=== PATIENT | female | born 1965 | race Caucasian/White ===

== ENCOUNTER 2020-04-02 11:01 | Outpatient (CLI) | payer BC, SELFPAY ==
--- NOTE | ~2020-04-02 | US_ITS ---
EXAMINATION: US soft tissue LE RT DATE: 04/02/2020 11:30 INDICATION: Lump at the lateral right midfoot TECHNIQUE: Multiple grayscale and Doppler ultrasound images of the region of concern at the lateral r ight midfoot were obtained. COMPARISON: None FINDINGS: Palpable abnormality corresponds to a 14 x 9 x 6 mm multilobulated cystic lesion which appears to rupinder se dorsally from the junction of the fourth and fifth tarsal metatarsal joints most consistent with a ganglion cyst. The lesion demonstrates no associated solid soft tissue component or vascular flow on color Doppler. IMPRESSION: 1. 14 x 9 x 6 mm multilobulated ganglion cyst arising between the fourth and fifth tarsal metatarsal joints. Reviewed, dictated and finalized at location A. IMPRESSION: 1. 14 x 9 x 6 mm multilobulated ganglion cyst arising between the fourth and fi fth tarsal metatarsal joints.
== END 2020-04-02 11:02 | disposition home or self-care (01) ==
PROVIDERS: PCP Internal Medicine; Visit Provider Nurse Practitioner
DX: R22.41 Localized swelling, mass and lump, right lower limb (principal); M67.471 Ganglion, right ankle and foot
CPT/HCPCS: 76882

== ENCOUNTER 2020-07-23 08:57 | Outpatient (CLI) | payer BC, SELFPAY ==
--- NOTE | ~2020-07-23 | MMUS_ITS ---
EXAMINATION: MM diagnostic chikis BI w halle, US breast RT limited HISTORY: Palpable breast abnormality. TECHNIQUE: Additional 3-D tomosynthesis images of the breasts were performed and synthetic 2-D images were generated. CAD analysis was submitted and interpreted. High resolution right breast ultrasound was performed. COMPARISON: 01/10/2019 BREAST PARENCHYMAL COMPOSITION: The breasts are heterogenously dense, which may obscure small masses. FINDINGS: MAMMOGRAPHIC FINDINGS: There is no mammographic evidence for malignancy in the right breast. There are clustered calcificati ons in the upper outer quadrant of the left breast, anterior depth. There are additional scattered cl ustered calcifications of the left breast, likely benign. ULTRASOUND: Limited right breast ultrasound: At 4:00, 5 cm nipple, there is an oval hypoechoic mass with heterogeneous internal echotexture, mixed posterior attenuation and no internal vascularity measuring 4 x 4 x 2 mm. IMPRESSION: 1. Clustered nonspecific calcifications, upper outer quadrant of the left breast, anterior depth. Ramon reotactic biopsy recommended. BI-RADS Category 4. 2. Probable benign 4 mm right breast mass at 4:00, 5 cm from. Six-month follow-up right breast ultras ound recommended. BI-RADS Category 3. Reviewed, dictated and finalized at location A. IMPRESSION: 1. Clustered nonspecific calcifications, upper outer quadrant of the left breas t, anterior depth. Stereotactic biopsy recommended. BI-RADS Category 4. 2. Probable benign 4 mm right breast mass at 4:00, 5 cm from. Six-month follow- up right breast ultrasound recommended. BI-RADS Category 3.
== END 2020-07-23 08:58 | disposition home or self-care (01) ==
LOC: ANHIMG 08:58
PROVIDERS: PCP Internal Medicine; Visit Provider Clinical Nurse Specialist
DX: N63.10 Unspecified lump in the right breast, unspecified quadrant (principal); R92.8 Other abnormal and inconclusive findings on diagnostic imaging of breast
CPT/HCPCS: 76642; 77062; 77066; G0279

== ENCOUNTER 2020-07-31 12:33 | Outpatient (CLI) | payer BC, SELFPAY ==
--- NOTE | ~2020-07-31 | MM_ITS ---
EXAMINATION: MM stereotactic bx LT, MM post biopsy diagnostic LT, MM stereotactic specimen LT, Specim en Radiograph, Tissue Marker Clip Placement, Unilateral Mammogram DATE: 07/31/2020 14:41 (accession [id number]), 07/31/2020 15:38 (accession [id number]), 07/31 15:37 (accession [id number]) INDICATION: Abnormal mammogram: Microcalcifications, anterior left breast, upper outer quadrant. TECHNIQUE AND FINDINGS: The risks and potential benefits of the procedure were discussed with the patient and written informe d consent was obtained. Timeout procedure was performed. The patient was placed in the prone position on the dedicated stereotactic table with the left breast in lateral medial compression, and the area of interest was localized and targeted utilizing digital imaging with stereotaxis. After sterile preparation of the skin, 1% lidocaine was utilized for local anesthesia at the skin pun cture site and 1% lidocaine with epinephrine was utilized for deeper local anesthesia/is about the bi opsy site. A 9G [employer] vacuum assisted biopsy needle was advanced to the level of the calcification o f interest from a lateral approach utilizing stereotactic guidance and a total of 28 tissue core biop sies were obtained. A specimen radiograph demonstrates that multiple calcifications of interest are included within the t issue cores. A tissue marker clip was then placed at the biopsy site. A digital mammographic exposu re confirmed the successful deployment of the biopsy marker. The needle was removed and hemostasis w as achieved. A sterile bandage was applied. The patient tolerated the procedure well and there is n o evidence of significant immediate complication. The patient was given verbal as well as written po stprocedural instructions prior to discharge from the department. Tissue cores were submitted to [facility] pathology for histologic analysis. A 2-view left unilateral digital mammogram was obtained post procedure, demonstrating the tissue blanka er clip in expected position. IMPRESSION: 1. Successful stereotactic biopsy of anterior upper outer left breast microcalcifications, followed by tissue marker clip placement. Please refer to pathology report for histologic analysis. Reviewed, dictated and finalized at Location A. Reviewed, dictated and finalized at location A. IMPRESSION: 1. Successful stereotactic biopsy of anterior upper outer left breast microca lcifications, followed by tissue marker clip placement. Please refer to pathol ogy report for histologic analysis. IMPRESSION: 1. Successful stereotactic biopsy of anterior upper outer left breast microca lcifications, followed by tissue marker clip placement. Please refer to pathol ogy report for histologic analysis.
== END 2020-07-31 12:34 | disposition home or self-care (01) ==
PROVIDERS: PCP Internal Medicine; Visit Provider Clinical Nurse Specialist
DX: N63.20 Unspecified lump in the left breast, unspecified quadrant (principal)
CPT/HCPCS: 19081; 77065; 88305

== ENCOUNTER → 2021-08-24 12:53 | Outpatient (CLI) | payer BC, SELFPAY ==
--- NOTE | ~2021-08-24 | XR_ITS ---
XR chest 2V DATE: 08/24/2021 13:24 INDICATION: Long-term medication use for rheumatoid arthritis TECHNIQUE: 2 views COMPARISON: 10/10/2019 2 view chest FINDINGS: Normal heart size. No hilar or mediastinal enlargement. No pleural effusion or pulmonary va scular congestion. No pneumothorax. No pulmonary infiltrate or consolidation. Diffuse osteopenia. Mild dextro scoliosis of thoracic spine. Degenerative spurring of the thoracic sp ine. IMPRESSION: No active cardiopulmonary disease or significant change since 10/10/2019 Reviewed, dictated and finalized at location B.
== END ==
PROVIDERS: PCP Internal Medicine; Visit Provider Internal Medicine Rheumatology
DX: M05.79 Rheumatoid arthritis with rheumatoid factor of multiple sites without organ or systems involvement (principal); Z79.899 Other long term (current) drug therapy; Z51.81 Encounter for therapeutic drug level monitoring
CPT/HCPCS: 71046

== ENCOUNTER 2022-01-18 07:29 | Outpatient (CLI) | payer BC, SELFPAY ==
--- NOTE | ~2022-01-18 | MM_ITS ---
EXAMINATION: MM screening chikis BI w halle HISTORY: Screening TECHNIQUE: Craniocaudal and mediolateral oblique 3-D tomosynthesis images were obtained and synthetic 2-D images were generated. CAD analysis was submitted and interpreted. COMPARISON: Comparison to multiple prior studies sequentially, with oldest reviewed study dated 01/10. BREAST PARENCHYMAL COMPOSITION: The breasts are heterogeneously dense, which may obscure small masses . FINDINGS: There is a developing focal asymmetry in the upper outer quadrant of the right breast. The left breast is stable without evidence for malignancy. IMPRESSION: 1. Developing right breast asymmetry. 2. Additional spot compression and mediolateral views with possible follow-up breast ultrasound recom mended. BI-RADS Category 0: Incomplete: Needs additional imaging evaluation. Reviewed, dictated and finalized at location A. PHONE STATION INSTALLER IMPRESSION: 1. Developing right breast asymmetry. 2. Additional spot compression and mediolateral views with possible follow-up b reast ultrasound recommended. BI-RADS Category 0: Incomplete: Needs additional imaging evaluation.
== END 2022-01-18 07:30 | disposition home or self-care (01) ==
LOC: ANHIMG 07:34
PROVIDERS: PCP Internal Medicine; Visit Provider Obstetrics & Gynecology
DX: Z12.31 Encounter for screening mammogram for malignant neoplasm of breast (principal); R92.8 Other abnormal and inconclusive findings on diagnostic imaging of breast
CPT/HCPCS: 77063; 77067

== ENCOUNTER 2022-02-03 12:55 | Outpatient (CLI) | payer BC, SELFPAY ==
--- NOTE | ~2022-02-03 | MMUS_ITS ---
EXAMINATION: MM diagnostic chikis RT w halle, US breast RT limited HISTORY: TECHNIQUE: Additional 3-D tomosynthesis images of were performed and synthetic 2-D images were genera mckinley. CAD analysis was submitted and interpreted. High resolution breast ultrasound was performed. COMPARISON: 01/18/2022 bilateral screening mammogram 07/23/2020 bilateral diagnostic mammogram and limited right breast ultrasound FINDINGS: MAMMOGRAPHIC FINDINGS: No suspicious mass or architectural distortion is detected. There are scattered benign calcification s. ULTRASOUND: An approximately 2 x 3.3 mm irregular hypoechoic area with posterior shadowing is noted at 12:00 2 cm from nipple. Ultrasound guided biopsy is recommended. IMPRESSION: 1. Irregular hypoechoic mass with posterior shadowing at 12:00 2 cm from nipple 2. Ultrasound guided biopsy of 12:00 lesion is recommended. BIRADS Category 4: Suspicious abnormality; biopsy should be considered. Telephoned the report and ultrasound-guided biopsy recommendation for the right breast 12:00 lesi on on 02/04/[address] Cavazos's medical records receptionist. Thalia Reviewed, dictated and finalized at location A. IMPRESSION: 1. Irregular hypoechoic mass with posterior shadowing at 12:00 2 cm from nipple 2. Ultrasound guided biopsy of 12:00 lesion is recommended. BIRADS Category 4: Suspicious abnormality; biopsy should be considered. Telephoned the report and ultrasound-guided biopsy recommendation for the r ight breast 12:00 lesion on 02/04/[address] Cavazos's medical Ass t. Thalia IMPRESSION: 1. Irregular hypoechoic mass with posterior shadowing at 12:00 2 cm from nipple 2. Ultrasound guided biopsy of 12:00 lesion is recommended. BIRADS Category 4: Suspicious abnormality; biopsy should be considered. Telephoned the report and ultrasound-guided biopsy recommendation for the r ight breast 12:00 lesion on 02/04/[address] Cavazos's medical Ass tNakia Vásquez
== END 2022-02-03 12:56 | disposition home or self-care (01) ==
PROVIDERS: PCP Internal Medicine; Visit Provider Obstetrics & Gynecology
DX: R92.8 Other abnormal and inconclusive findings on diagnostic imaging of breast (principal); N63.14 Unspecified lump in the right breast, lower inner quadrant
CPT/HCPCS: 76642; 77061; 77065; G0279

== ENCOUNTER 2022-08-11 07:55 | Outpatient (CLI) | payer BC, SELFPAY ==
--- NOTE | 2022-09-06 21:24 | WPDSLEEPSTUD ---
Sleep Study Date of Study: 08/11/22 Ordering Provider: Thuy Heath NP Interpreting Physician: Sandra Hernadez DO Sleep Study Type: Polysomnogram Height: 1.6 m Weight: 55.338 kg Body Mass Index: 21.6 Neck Circumference (inches): 12.5 [place]: 8 Reason for Sleep Study Previously diagnosed VELIA on CPAP. Lost 130 pounds. Sleep History The patient is a 57-year-old female with anxiety, depression, hyperlipidemia, rheumatoid arthritis, type 2 diabetes and previously diagnosed sleep apnea on CPAP that had a sleep study ordered by her primary care for evaluation of sleep apnea after significant weight loss. The patient denies awakening from sleep short of breath. She denies awakening at night with heartburn, belching or cough. She denies snoring loud enough that others complain. She frequently has trouble sleeping when she has a cold. She denies waking up gasping for air throughout the night. She denies sweating excessively at night. She denies having heart palpitations or irregular heartbeats during the night. She occasionally falls asleep during the day but never while driving. She denies sleep paralysis, cataplexy and hypnagogic / hypnopompic hallucinations. She denies having trouble at school or work due to sleepiness. She denies feeling afraid of going to sleep. She denies having nightmares. She rarely remembers her dreams. She rarely has thoughts racing through her. She occasionally feels sad, depressed and anxious. She denies having muscular tension. She denies noticing parts of her body jerk. She denies kicking during the night. She denies having crawling and aching feelings in her legs as well as leg pain during the night. She denies grinding her teeth during sleep awakening with morning jaw pain. She denies being bothered by pain during the day and denies being awakened by pain during the night. She rarely wakes up feeling stiff morning. She denies waking up with sore or achy muscles. She denies waking up with pain in the neck, spine and other joints. She goes to bed at 8:00 p.m. on both weekdays and weekends. It takes her 30 minutes to fall asleep. She wakes up once at most throughout the night to urinate. She is able fall back asleep immediately. She wakes up at 4:00 a.m. on weekdays and between 4-5 a.m. on the weekends. She typically gets 8 hours of sleep per night. She does not stay in bed after waking up in the morning. She currently lives with her and children. She does not consume any caffeinated beverages within 2 hours of bedtime. She does not engage in physical exercise before bedtime. She will watch television and occasionally read before falling asleep. She will occasionally take naps in the afternoon or the evening. He drinks 3 cups of coffee per day. She denies tobacco, alcohol and recreational drug use. [facility] Past Medical History Medical History Anxiety and depression H/O one miscarriage Mixed hyperlipidemia Non-healing wound Rheumatoid arthritis Type 2 diabetes mellitus without complication, with long-term current use of insulin Surgical History Surgical History Delivery by section H/O dilation and curettage H/O gastric bypass H/O: hysterectomy History of bariatric surgery Family History Family History Mother Diabetes mellitus Grandparent Diabetes mellitus Colon cancer Leukemia Social History Social History Smoking status: Never smoker Alcohol intake: never Medications Home Medications Medication Instructions Recorded Confirmed Type bimatoprost 0.01 % eye drops 1 drop ophthalmic (eye) QPM 10/10/19 12/19/21 History ([place]) cyclosporine 0.05 % eye drops in a 1 drop ophthalmic (eye) Q12H 10/10/19 12/19/21 H
[2022-09-06 21:31] VITALS: BMI 21.6
== END 2022-08-12 06:48 | disposition home or self-care (01) ==
LOC: ANHCSM 07:56
PROVIDERS: PCP Internal Medicine; Visit Provider Nurse Practitioner
DX: G47.33 Obstructive sleep apnea (adult) (pediatric) (principal); R06.83 Snoring
CPT/HCPCS: 95810

== ENCOUNTER 2022-09-08 10:31 | Outpatient (CLI) | payer OTHER, SELFPAY ==
[2022-09-08 19:39] LABS: Alanine Aminotransferase 39 U/L (6-35); Albumin Level 4.7 g/dL (3.5-5.1); Alkaline Phosphatase 74 U/L (38-126); Anion Gap 14 mmol/L (8-16); Aspartate Amino Transferase 41 U/L (14-36); Bilirubin,Total 0.5 mg/dL (0.2-1.3); Blood Urea Nitrogen 8 mg/dL (7-17); Calcium 9.5 mg/dL (8.4-10.2); Carbon Dioxide 27 mmol/L (22-30); Chloride 100 mmol/L (98-107); Cholesterol 142 mg/dL (0-200); Estimated Glomerular Filt Rate > 60; Glucose 126 mg/dL (65-110); HDL Direct 89 mg/dL; Potassium 3.9 mmol/L (3.4-5.0); Sodium 141 mmol/L (137-145); Triglycerides 57 mg/dL (<150)
[2022-09-08 19:50] LABS: LDL Cholesterol Direct 34 mg/dL; Vitamin D 25 Hydroxy 63.6 ng/mL
[2022-09-08 19:55] LABS: Basophils Absolute Auto 0.1 K/mm3 (0.0-0.1); Eosinophils Percent Auto 0.3 % (0-4.4); Hematocrit 35.3 % (37.0-47.0); Hemoglobin 11.4 g/dL (12.0-15.0); Hemoglobin A1C 7.3 % (<5.7); Immature Granulocyte Absolute 0.01 K/mm3 (0.00-0.031); Immature Granulocyte Percent A 0.2 % (0-0.5); Lymphocytes Absolute Auto 2.24 K/mm3 (0.9-3.2); Lymphocytes Percent Auto 37.3 % (18.3-44.2); Mean Corpuscular HGB Conc 32.3 g/dl (32-36); Mean Corpuscular Hemoglobin 29.1 pg (26-34); Mean Corpuscular Volume 90.1 fl (80-100); Monocytes Absolute Auto 0.5 K/mm3 (0.1-0.6); Monocytes Percent Auto 8.3 % (2.6-8.5); Neutrophils Absolute Auto 3.2 K/mm3 (1.3-6.7); Neutrophils Percent Auto 52.9 % (45.5-73.1); Platelet Count Result 242 k/mm3 (150-375); Red Blood Count 3.92 M/mm3 (4.2-5.4); Red Cell Distribution Width 13.2 % (11.5-14.5)
== END 2022-09-08 10:32 | disposition home or self-care (01) ==
LOC: ANHGOSHLAB 10:33
PROVIDERS: PCP Internal Medicine; Visit Provider Nurse Practitioner
DX: E11.9 Type 2 diabetes mellitus without complications (principal); E55.9 Vitamin D deficiency, unspecified; Z13.220 Encounter for screening for lipoid disorders; Z13.29 Encounter for screening for other suspected endocrine disorder; Z79.4 Long term (current) use of insulin; D64.9 Anemia, unspecified
CPT/HCPCS: 36415; 80053; 80061; 82306; 82728; 83036; 85025

== ENCOUNTER 2023-03-01 08:08 | Outpatient (CLI) | payer OTHER, SELFPAY ==
--- NOTE | ~2023-03-01 | MM_ITS ---
EXAMINATION: MM screening [facility] BI w halle HISTORY: Screening mammogram TECHNIQUE: Craniocaudal and mediolateral oblique 3-D tomosynthesis images were obtained and synthetic 2-D images were generated. CAD analysis was submitted and interpreted. COMPARISON: 02/03/2022, 01/18/2022, 07/23/2020, 01/10/2019 BREAST PARENCHYMAL COMPOSITION: The breasts are heterogeneously dense, which may obscure small masses . FINDINGS: No suspicious mass, calcification, or architectural distortion are identified in either farhat ast to suggest malignancy. There has been no suspicious interval change. IMPRESSION: 1. No mammographic evidence of malignancy. 2. Recommend routine screening mammography in one year. BI-RADS Category 1: Negative Reviewed, dictated and finalized at location A.
== END 2023-03-01 08:09 | disposition home or self-care (01) ==
PROVIDERS: PCP Internal Medicine; Visit Provider Obstetrics & Gynecology
DX: Z12.31 Encounter for screening mammogram for malignant neoplasm of breast (principal)
CPT/HCPCS: 77063; 77067

== ENCOUNTER 2023-03-17 08:00 | Outpatient (NON) | payer OTHER, SELFPAY | END 2023-03-17 08:01 | disposition home or self-care (01) | LOC: ANHLAB 03-18 15:10 | PROVIDERS: PCP Internal Medicine; Visit Provider Nurse Practitioner | DX: R22.9 Localized swelling, mass and lump, unspecified (principal) | CPT/HCPCS: 88304 ==

== ENCOUNTER 2023-03-22 11:45 | Outpatient (NON) | payer OTHER, SELFPAY | END 2023-03-22 11:46 | disposition home or self-care (01) | LOC: ANHLAB 03-23 11:47 | PROVIDERS: PCP Internal Medicine; Visit Provider Nurse Practitioner | DX: L02.212 Cutaneous abscess of back [any part, except buttock and flank] (principal) | CPT/HCPCS: 87070; 87075; 87147; 87181; 87186; 87205 ==

== ENCOUNTER 2024-01-18 13:11 | Outpatient (CLI) | payer OTHER, SELFPAY ==
--- NOTE | ~2024-01-18 | US_ITS ---
EXAMINATION: US thyroid DATE: 01/18/2024 13:39 INDICATION: Left thyroid mass on exam. TECHNIQUE: Multiple ultrasound images of the thyroid were obtained. COMPARISON: None. FINDINGS: The right thyroid lobe measures 3.8 x 1.4 x 1.6 cm. The left thyroid lobe measures 3.6 x 1.6 x 1.3 c m. The thyroid demonstrates heterogeneous hypoechogenicity. Vascularity is increased. In the right t hyroid lobe, there is a 4 mm nodule. In the right thyroid lobe, there is an 8 mm solid, isoechoic, wi zully than tall nodule with ill-defined margin without echogenic foci (TI-RADS TR4). IMPRESSION: 1. Heterogeneous, hypervascular thyroid, consistent with chronic lymphocytic (Bhavna) thyroiditis. 2. Small thyroid nodules, likely not clinically significant. No follow-up is needed. Reviewed, dictated and finalized at location E. SECONDARY PROFESSIONAL IMPRESSION: 1. Heterogeneous, hypervascular thyroid, consistent with chronic lymphocytic (H ashimoto) thyroiditis. 2. Small thyroid nodules, likely not clinically significant. No follow-up is ne eded.
== END 2024-01-18 13:12 ==
LOC: MICIMG 13:12
PROVIDERS: PCP Otolaryngology; Visit Provider Otolaryngology
DX: E07.89 Other specified disorders of thyroid (principal); E04.2 Nontoxic multinodular goiter
CPT/HCPCS: 76536

== ENCOUNTER 2024-08-02 07:53 | Outpatient (CLI) | payer OTHER, SELFPAY ==
--- NOTE | ~2024-08-02 | MM_ITS ---
EXAMINATION: MM screening chikis BI w halle HISTORY: Screening mammogram TECHNIQUE: Craniocaudal and mediolateral oblique 3-D tomosynthesis images were obtained and synthetic 2-D images were generated. CAD analysis was submitted and interpreted. COMPARISON: 03/01/2023, 02/03/2022, 01/18/2022, 07/23/2020 BREAST PARENCHYMAL COMPOSITION:Dense: The breasts are extremely dense, which lowers the sensitivity o f mammography. FINDINGS: No suspicious mass, calcification, or architectural distortion are identified in either farhat ast to suggest malignancy. There has been no suspicious interval change. IMPRESSION: No mammographic evidence of malignancy. Recommend routine screening mammography in one year. BI-RADS Category 1: Negative Reviewed, dictated and finalized at location .
--- NOTE | ~2024-08-02 | DEXA_ITS ---
Bone Density Report Name: RASHID ROLDAN Age: 59 Sex: Female Ethnicity: White Date of : 1965 Indication: postmenopausal; screening for osteoporosis; height loss; hysterectomy; rheumatoid arthritis; secondary osteoporosis; Referring Provider: JULY JOYNER Study: Bone densitometry was performed. Exam Date: August 02, 2024 Accession number: [id number] Bone Density: Region BMD T-score Z-score Classification AP Spine(L1-L4) 0.803 -2.2 -0.8 Osteopenia Femoral Neck (Left) 0.629 -2.0 -0.7 Osteopenia Total Hip (Left) 0.722 -1.8 -0.9 Osteopenia Femoral Neck (Right) 0.515 -3.0 -1.7 Osteoporosis Total Hip (Right) 0.629 -2.6 -1.6 Osteoporosis Total Hip Mean 0.676 -2.2 -1.3 Osteopenia World Health Organization criteria for BMD impression classify patients as: Normal (T-score at or above -1.0), Osteopenia (T-score between -1.0 and -2.5), or Osteoporosis (T-score at or below -2.5). 10-year Fracture Risk: FRAX not reported because: Some T-score for Spine Total or Hip Total or Femoral Neck at or below -2.5 Clinical Information Provided by Patient: Has rheumatoid arthritis Has secondary osteoporosis Has used the following medications: Vitamin D, Calcium Has the following medical conditions: Hysterectomy Patient maximum height was 64 Menopause Age: 43 No regular weight bearing exercise Drinks caffeinated beverages Onset of menses at age 11 Number of children 2 Impression: The patient has osteoporosis, based on the Right Femoral Neck T-score. Discussion: INCREASED RISK OF FRACTURE. BONE DENSITY IS UNDESIRABLY LOW AT ONE OR MORE SKELETAL SITES, CONSISTENT WITH POSTMENOPAUSAL OSTEOPOROSIS. This patient's lowest T-score meets the World Health Organization's (WHO) criteria for osteoporosis at one or more sites (T-score -2.5 or below). In untreated patients, the risk of osteoporotic fracture increases approximately two-fold for each 1.0 SD decrease in T-score. Low bone density is not the only risk factor for fracture; also consider factors such as patient's age, frailty or poor health, risk of falling, risk of injury, previous osteoporotic fracture, family history of osteoporosis, cigarette smoking, low body weight, etc. Not everyone with low bone mineral density has osteoporosis; osteomalacia and other metabolic bone disorders should also be considered. Patients who have osteoporosis should be evaluated for specific diseases and conditions (secondary causes) that may cause or contribute to bone loss. The [place] [employer] Clinical Endocrinologists (AACE) and National Osteoporosis Foundation (NOF) recommend pharmacologic intervention for all postmenopausal women whose T-score is in this range. The patient should follow a healthful lifestyle (good nutrition with adequate calcium and vitamin D, and mariluz
== END 2024-08-02 07:54 | disposition home or self-care (01) ==
LOC: ANHIMG 07:55
PROVIDERS: PCP Internal Medicine; Visit Provider Obstetrics & Gynecology
DX: Z12.31 Encounter for screening mammogram for malignant neoplasm of breast (principal); M85.89 Other specified disorders of bone density and structure, multiple sites; M81.0 Age-related osteoporosis without current pathological fracture; Z78.9 Other specified health status
CPT/HCPCS: 77063; 77067; 77080

== ENCOUNTER 2024-09-19 14:28 | Outpatient (CLI) | payer OTHER, SELFPAY ==
--- NOTE | ~2024-09-19 | XR_ITS ---
XR_[id number] 09/19/2024 14:42 Indication: Rheumatoid arthritis. Knee pain. Procedure: 2 views left knee Comparison: No prior studies for comparison. Findings: Mild tricompartment osteoarthritis of the left knee. No fracture, subluxation or dislocatio n. No significant joint effusion. No foreign bodies. No erosive changes. Impression: 1: Mild osteoarthritis of the left knee. Reviewed, dictated and finalized at location B. ING MILL OPERATOR Impression: 1: Mild osteoarthritis of the left knee.
--- NOTE | ~2024-09-19 | XR_ITS ---
[id number] 09/19/2024 14:42 Indication: Knee pain Procedure: 2 views right knee Comparison: No prior studies for comparison. Findings: Moderate osteoarthritis of the right knee. No fracture, subluxation or dislocation. No join t effusion. Impression: 1: Moderate tricompartment osteoarthritis. Reviewed, dictated and finalized at location B. NICAL INSPECTOR Impression: 1: Moderate tricompartment osteoarthritis.
== END 2024-09-19 14:29 | disposition home or self-care (01) ==
LOC: GOSHIMG 14:29
PROVIDERS: PCP Internal Medicine; Visit Provider Nurse Practitioner
DX: M17.0 Bilateral primary osteoarthritis of knee (principal)
CPT/HCPCS: 73560

== ENCOUNTER 2024-12-19 14:49 | Outpatient (CLI) | payer OTHER, SELFPAY ==
--- NOTE | ~2024-12-19 | XR_ITS ---
Left Knee Technique: AP and lateral views were obtained. Clinical History: Abnormal x-ray Findings: No fracture or dislocation is seen. There is mild tricompartmental degenerative spurring. S mall joint effusion is seen. Impression: Mild tricompartmental degenerative joint disease. Small joint effusion. Reviewed, dictated and finalized at location . [employer] Impression: Mild tricompartmental degenerative joint disease. Small joint effusion.
--- NOTE | ~2024-12-19 | XR_ITS ---
HISTORY: Abnormal xray of knee COMPARISON: 09/19/2024 TECHNIQUE: 2 views of the right knee were performed FINDINGS: No acute or subacute fracture, erosion, lytic or sclerotic lesion. Significant medial and lateral tibiofemoral joint space narrowing, with sclerosis. Osteophyte formation is also noted within the proximal tibia along the medial surface. Small suprapatellar joint effusion is identified. The infrapatellar joint space is clear. Ossification of the insertion of the quadriceps tendon is suspected, although visualization is limite d secondary to positioning. IMPRESSION: Progression of degenerative disease, without acute fracture. Reviewed, dictated and finalized at location A. [employer]PORATE STRATEGY
== END 2024-12-19 14:50 | disposition home or self-care (01) ==
LOC: MICIMG 14:51
PROVIDERS: PCP Internal Medicine; Visit Provider Nurse Practitioner Family
DX: M17.0 Bilateral primary osteoarthritis of knee (principal); R93.6 Abnormal findings on diagnostic imaging of limbs
CPT/HCPCS: 73560

== ENCOUNTER 2025-09-19 09:27 | Outpatient (CLI) | payer OTHER, SELFPAY ==
--- NOTE | ~2025-09-19 | CT_ITS ---
EXAM: CT abdomen without contrast INDICATION: Disorder of adrenal gland COMPARISONS: None. PROCEDURE: Multiplanar images without the use of IV contrast. Dose reduction technique(s) used. FINDINGS: Lower chest: Lung bases are clear. Body wall: There is a small, mostly soft tissue density structure in the anterior abdominal wall abutting the right side of the umbilicus. It contains some fat density. It is uncertain if this represents a thin injection site, a tiny hernia (there is artifact in the region on the sagittal images, so this cannot be stated with certainty), or be related to an infection in the umbilicus. ABDOMEN: Postoperative changes about the GE junction. Liver: Normal size and homogeneous parenchyma. Gallbladder: No calcified gallstones. No bile duct dilatation. Spleen: Normal. Adrenals: Normal. Pancreas: No mass or adjacent stranding. Normal caliber duct. Kidneys: No hydronephrosis. There are small cysts and a small nonobstructive stone in the left kidney. Aorta: Normal caliber. IVC: Normal. Retroperitoneum: No adenopathy. Stomach and visualized esophagus: No abnormality. Bones: No destructive lesion. IMPRESSION: There is been interval gastric surgery. The lack of intraperitoneal fat on the current study makes evaluation suboptimal. No adrenal mass is seen. Tiny structure in the anterior abdominal wall abutting the umbilicus on the right. Clinically correlate. Reviewed, dictated and finalized at location A. NEY MECHANIC IMPRESSION: There is been interval gastric surgery. The lack of intraperitoneal fat on the current study makes evaluation suboptimal. No adrenal mass is seen. Tiny struct ure in the anterior abdominal wall abutting the umbilicus on the right. Clinica lly correlate.
== END 2025-09-19 09:28 | disposition home or self-care (01) ==
LOC: MICIMG 09:27
PROVIDERS: PCP Nurse Practitioner; Visit Provider Internal Medicine Endocrinology, Diabetes & Metabolism
DX: E27.9 Disorder of adrenal gland, unspecified (principal); Z98.84 Bariatric surgery status
CPT/HCPCS: 74150